=== PATIENT | female | born 1995 | race Two or more races ===

== ENCOUNTER 2022-12-11 22:12 | Emergency (ER) | payer MEDICAID ==
[~2022-12-11] VITALS: Ht 165.1 cm; Wt 154.6 kg
[2022-12-11 22:17] VITALS: TEMP 98.6
[2022-12-11] MEDS ORDERED: FAMOTIDINE 20 MG/2 ML VIAL IVP ONE (23:15)
[2022-12-11] MEDS ORDERED: SODIUM CHLORIDE 0.9% 1,000 ML IV ONE (23:15)
[2022-12-11 23:48] LABS: BASOPHILS % (AUTO) 0.5 % (0.0-2.0); HEMATOCRIT 40.5 % (36-46); HEMOGLOBIN 13.5 g/dL (12.0-16.0); LYMPHOCYTES # (AUTO) 3.3 K/uL (1.0-4.8); LYMPHOCYTES % (AUTO) 29.3 % (22.0-44.0); MEAN CORPUSCULAR HEMOGLOBIN 29.8 pg (26.0-34.0); MEAN CORPUSCULAR HGB CONC 33.4 G/dL (31.0-37.0); MEAN CORPUSCULAR VOLUME 89 fL (80-100); MONOCYTES # (AUTO) 0.6 K/uL (0.1-1.0); MONOCYTES % (AUTO) 5.6 % (2.0-9.0); NEUTROPHILS % (AUTO) 62.6 % (40.0-70.0); PLATELET COUNT (AUTO) 235 K/uL (150-450); RED BLOOD CELL COUNT(AUTO) 4.54 MIL/uL (4.00-5.20); RED CELL DISTRIBUTION WIDTH 13.8 % (11.5-14.5)
[2022-12-12 00:01] LABS: ANION GAP 11 mmol/L (8-16); CARBON DIOXIDE 26 mmol/L (22-29); CHLORIDE 100 mmol/L (98-107); CREATININE 0.91 mg/dL (0.60-1.30); GLUCOSE,RANDOM 143 mg/dL (70-110); POTASSIUM 3.6 mmol/L (3.5-5.1); SODIUM SERUM 137 mmol/L (136-145)
[2022-12-12 00:02] LABS: CALCIUM, TOTAL 9.4 mg/dL (8.8-10.5); GLOMERULAR FILTR. RATE CALC > 60 mL/min (>60)
[2022-12-12 00:06] LABS: ALANINE AMINOTRANSFERASE 44 U/L (12-78); ALBUMIN 3.1 g/dL (3.4-5.0); ALKALINE PHOSPHATASE 95 U/L (46-116); ASPARTATE AMINOTRANSFERASE 19 U/L (15-37); BILIRUBIN,TOTAL 0.4 mg/dL (0.1-1.0); HCG,QUANTITATIVE < 1 mIU/mL (0-6); LIPASE 99 U/L (73-393)
[2022-12-12] MEDS ORDERED: HYDROmorphone HCL 2 MG/ML SYRINGE IVP ONE (01:30)
[2022-12-12] MEDS ORDERED: FAMO20 PO (05:04)
[2022-12-12 05:13] VITALS: BP 138/78; PULSE 80; RESP 18
== END 2022-12-12 05:21 | disposition home or self-care (01) ==
LOC: EMS 22:13
DX: R10.11 Right upper quadrant pain (principal); K80.50 Calculus of bile duct without cholangitis or cholecystitis without obstruction
CPT/HCPCS: 99285; 96374; 76705; 96361; 80053; 83690; 84702; 85025; 74022; 96375; J7030; J1170

== ENCOUNTER 2023-07-14 07:04 | Emergency (ER) | payer MEDICAID, OTHER, SELFPAY ==
[~2023-07-14] VITALS: Ht 165.1 cm; Wt 174.6 kg
[~2023-07-14 07:04] MED LIST: FAMO20 PO
[2023-07-14 07:15] VITALS: TEMP 98.4
[2023-07-14 07:23] VITALS: BP 133/82; PULSE 92; RESP 16
[2023-07-14] MEDS ORDERED: CORTSUSP AS (07:25)
== END 2023-07-14 07:49 | disposition home or self-care (01) ==
LOC: EMS 07:05
DX: H60.92 Unspecified otitis externa, left ear (principal)
CPT/HCPCS: 99283